=== PATIENT | female | born 1980 ===

== ENCOUNTER 2022-09-23 08:45 | Outpatient (CLI) | payer SELFPAY | END 2022-09-23 08:46 | disposition EMS.NT | LOC: EMS 08:45 | DX: Z04.1 Encounter for examination and observation following transport accident (principal) ==

== ENCOUNTER 2022-11-19 11:46 | Outpatient (CLI) | payer OTHER | END 2022-11-19 11:47 | disposition home or self-care (01) | LOC: DI 11:46 | PROVIDERS: ATTEND Physician Assistant | DX: R01.1 Cardiac murmur, unspecified (principal) | CPT/HCPCS: 93306 ==